=== PATIENT | male | born 1995 | race Hispanic/Latino ===

== ENCOUNTER 2021-10-24 19:57 | Emergency (ER) | payer OTHER ==
[~2021-10-24] VITALS: Ht 167.6 cm; Wt 72.6 kg
== END 2021-10-24 21:00 | disposition home or self-care (01) ==
LOC: ER 20:47
DX: S60.222A Contusion of left hand, initial encounter (principal); W20.8XXA Other cause of strike by thrown, projected or falling object, initial encounter; Y92.89 Other specified places as the place of occurrence of the external cause
CPT/HCPCS: 99283